=== PATIENT | female | born 1945 | race Caucasian/White ===

== ENCOUNTER 2016-11-01 08:45 | Outpatient (CLI) | payer MEDICARE, OTHER | END 2016-11-01 08:46 | LOC: NAV LAB 08:45 | PROVIDERS: ATTEND Family Medicine | DX: E78.5 Hyperlipidemia, unspecified (principal) | CPT/HCPCS: 80061 ==

== ENCOUNTER 2017-01-29 09:36 | Outpatient (CLI) | payer MEDICARE, OTHER ==
[2017-01-29 10:54] LABS: Cardiac Risk 5.7 (Less than 4.5)
== END 2017-01-29 09:37 ==
LOC: NAV LAB 09:36
PROVIDERS: ATTEND Family Medicine
DX: E78.5 Hyperlipidemia, unspecified (principal)
CPT/HCPCS: 80061

== ENCOUNTER 2017-05-09 17:00 | Inpatient (IN) | payer MEDICARE, OTHER ==
[2017-05-09 17:14] VITALS: BMI 30.3
[2017-05-09] MEDS: Gabapentin 400 MG CAP PO SCH (21:16)
[2017-05-09] MEDS: traMADol HCl 50 MG TAB PO SCH (21:16)
[2017-05-09] MEDS: Amoxicillin/Potassium Clav 875 MG TAB PO SCH (21:16)
[2017-05-09] MEDS: Apixaban 5 MG TAB PO SCH (21:16)
[2017-05-10 05:39] LABS: #Basophils 0.1 thou/uL (0.0-0.2); #Eosinphils 0.3 thou/uL (0.0-0.7); #Lymphocytes 1.9 thou/uL (1.20-3.40); #Neutrophils 6.2 thou/uL (1.40-6.50); %Basophils 1.2 % (0.0-1.0); %Eosinophils 3.6 % (0.0-10.0); %Lymphocytes 19.6 % (21.0-51.0); %Monocytes 10.7 % (0.0-10.0); %Neutrophils 64.9 % (42.0-75.0); Hemoglobin 11.6 g/dL (12.0-16.0); Mean Corpuscular HGB CONC 33.4 g/dL (32.0-36.0); Mean Corpuscular Hemoglobin 28.8 pg (27.0-31.0); Mean Corpuscular Volume 86.2 fl (81.0-99.0); Mean Platelet Volume 6.4 fL (7.4-10.4); Platelet Count 277 thou/uL (130-400); Red Blood Cell (RBC) Count 4.01 mill/uL (4.20-5.40); White Blood Cell (WBC) Count 9.5 thou/uL (4.8-10.8)
[2017-05-10 05:50] LABS: Anion Gap 13 mmol/L (10-20); BUN (Urea Nitrogen) 15 mg/dL (9.8-20.1); Calc. Creatinine Clearance 77 mL/min (70-130); Calcium 9.4 mg/dL (7.8-10.44); Carbon Dioxide 30 mmol/L (23-31); Chloride 100 mmol/L (98-107); Estimated GFR-MDRD 63; Glucose 100 mg/dL (83-110); Potassium 4.4 mmol/L (3.5-5.1); Sodium 139 mmol/L (136-145)
[2017-05-10] MEDS: Amoxicillin/Potassium Clav 875 MG TAB PO SCH ×2 (08:11→20:19)
[2017-05-10] MEDS: Gabapentin 400 MG CAP PO SCH ×3 (08:11→20:20)
[2017-05-10] MEDS: Apixaban 5 MG TAB PO SCH ×2 (08:11→20:20)
[2017-05-10] MEDS: Calcium Carbonate + Vit D 1 TAB PO SCH (08:11)
[2017-05-10] MEDS: Hydrochlorothiazide 25 MG TAB PO SCH (08:12)
[2017-05-10] MEDS: traMADol HCl 50 MG TAB PO SCH ×2 (08:12→20:20)
[2017-05-10] MEDS: Multivitamin W/ Minerals 1 TAB PO SCH (08:12)
[2017-05-10] MEDS: Venlafaxine HCl XR 75 MG CAP PO SCH (08:13)
[2017-05-10] MEDS: Valsartan 80 MG TAB PO SCH (08:13)
--- NOTE | 2017-05-10 16:43 | HP ---
CHIEF COMPLAINT: Recent pneumonia, dehydration, acute renal failure and atrial fibrillation with RV R, status post ablation here for therapy. BRIEF HISTORY: This is a very pleasant 71-year-old female, who was admitted to [facility] in [place] on 05/05/2017 with sepsis, atrial fibrillation with RVR, acute kidney injury and dehydration. CT of the chest showed no PE, but consolidation in her right middle lobe. She also bean d atrial fibrillation with RVR, requiring IV Cardizem and when she was admitted, she also had a crea tinine of 2.1. She was treated with IV antibiotics, IV fluids, and she did undergo cardiac catheter ization and underwent radiofrequency ablation. Her laboratory values all improved. Her echocardiog candido showed a normal left ventricular systolic function with normal size chambers. On the day of dis charge, her H\T\H was 11.2 and 34.5 with a BUN and creatinine of 21 and 0.86. She has been having s ome high blood pressures and currently, she is taking Diovan 320 mg daily along with HCTZ 25 daily. Currently, she denies any complaints. She is eating lunch. No chest pain or shortness of breath. She is concerned about her elevated blood pressure. She is also on Toprol-XL 50 mg b.i.d. PAST MEDICAL HISTORY: 1. Hypertension. 2. Dyslipidemia. 3. Chronic low back pain. 4. Gastroesophageal reflux disease. 5. Atrial fibrillation, requiring ablation. 6. Recent pneumonia. PAST SURGICAL HISTORY: 1. Laparoscopic cholecystectomy. 2. History of benign right breast biopsy. 3. Radiofrequency ablation. ALLERGIES: TYLENOL and SULFA. FAMILY HISTORY: CVA in her father. PSYCHOSOCIAL HISTORY: No history of tobacco, alcohol or IV drug abuse. She is active and independe nt. She lives in nearby [place]. CODE STATUS: FULL. MEDICATIONS: She has been transferred here on the following medications: 1. Amoxicillin and clavulanic acid, which is Augmentin 875 mg b.i.d. for 2 more days. 2. Eliquis 5 mg b.i.d. 3. Ecotrin 81 mg daily. 4. Gabapentin 800 mg t.i.d. 5. Diovan/HCTZ 320/25 one p.o. daily. 6. Toprol-XL 50 mg b.i.d. 7. Protonix 40 mg daily. 8. Tramadol 50 mg b.i.d. 9. Effexor 150 mg daily. REVIEW OF SYSTEMS: CARDIOVASCULAR: Denies any chest pain, shortness of breath, palpitations, paroxysmal nocturnal dysp [place], orthopnea, pedal edema. RESPIRATORY: Denies any chronic cough, expectoration or pleuritic type chest pain. GASTROINTESTINAL: Denies any nausea, vomiting, diarrhea, constipation, hematemesis, melena, hematoc hezia. GENITOURINARY: Denies any frequency, urgency, dysuria or hematuria. CENTRAL NERVOUS SYSTEM: Generalized weakness. HEENT: No difficulty with speech, vision, hearing or swallowing. PHYSICAL EXAMINATION: GENERAL: Pleasant 71-year-old overweight female, resting comfortably, in no acute distres s. She responds appropriately to questions. She is alert, awake, and oriented x3. VITAL SIGNS: She is afebrile. Heart rate 64, respirations 18, oxygen saturation is 95%, blood pres sure 165/79. HEENT: Normocephalic, atraumatic. Pupils equal and reactive to light and accommodation. NECK: No JVD, thyromegaly, cervical adenopathy, throat exudates. No carotid bruits. CARDIOVASCULAR: S1, S2 plus rate and rhythm regular. RESPIRATORY: Normal vesicular breath sounds. ABDOMEN: Soft, obese, nontender, bowel sounds heard in all quadrants. EXTREMITIES: Without cyanosis or clubbing. Peripheral pulses are palpable. CENTRAL NERVOUS SYSTEM: Grossly nonfocal. LABORATORY VALUES: Done this morning shows a white count 9.5, H\T\H is 11.6 and 34.6 with a platele t count of 277. Sodium 139, potassium 4.4, BUN and creatinine 15 and 0.88. IMPRESSION: 1. Resolving community-acquired pneumonia. 2. Atrial fibrillation with rapid ventricular response, status post radiofrequency ablation. 3. Hypertension, not well controlled. 4. Dyslipidemia. 5. Gastroesophageal reflux disease. 6. Deconditioning. PLAN: 1. Continue current medications. 2. Add hydralazine 25 mg b.i.d. 3. Heart healthy diet. 4. She is on Eliquis for DVT prophylaxis. 5. Decubitus precautions. 6. Stress ulcer prophylaxis. 7. Routine laboratory values. 8. Discussed with patient in detail. All questions answered.
[2017-05-11] MEDS: Apixaban 5 MG TAB PO SCH ×2 (08:48→20:19)
[2017-05-11] MEDS: Amoxicillin/Potassium Clav 875 MG TAB PO SCH ×2 (08:48→20:20)
[2017-05-11] MEDS: Gabapentin 400 MG CAP PO SCH ×3 (08:50→20:19)
[2017-05-11] MEDS: Calcium Carbonate + Vit D 1 TAB PO SCH (08:50)
[2017-05-11] MEDS: Hydrochlorothiazide 25 MG TAB PO SCH (08:50)
[2017-05-11] MEDS: Multivitamin W/ Minerals 1 TAB PO SCH (08:51)
[2017-05-11] MEDS: traMADol HCl 50 MG TAB PO SCH ×2 (08:51→20:19)
[2017-05-11] MEDS: Valsartan 80 MG TAB PO SCH (08:52)
[2017-05-11] MEDS: Venlafaxine HCl XR 75 MG CAP PO SCH (08:53)
--- NOTE | 2017-05-11 10:09 | PRG ---
DATE OF SERVICE: 05/11/2017 SUBJECTIVE: Ms. Duncan is doing well. Denies any complaints, resting comfortably up in her chair. Denies any chest pain or shortness of breath. OBJECTIVE: VITAL SIGNS: She is afebrile, heart rate 84, respirations 18, oxygen saturation is 96%, blood press ure this morning was apparently 170/80. CARDIOVASCULAR: S1, S2 plus. RESPIRATORY: Normal vesicular breath sounds. ABDOMEN: Soft, nontender, bowel sounds heard in all quadrants. EXTREMITIES: Without cyanosis or clubbing. IMPRESSION: 1. Hypertension, not well controlled. She was just started on hydralazine yesterday. 2. Dyslipidemia. 3. Chronic low back pain. 4. Gastroesophageal reflux disease. 5. Atrial fibrillation, status post ablation, now in sinus rhythm. 6. Resolving pneumonia. PLAN: 1. Continue to monitor blood pressure and adjust medications as needed. 2. Heart healthy diet. 3. Monitor heart rate. 4. Deep venous thrombosis prophylaxis. She is tolerating liquids. 5. Decubitus precautions. 6. Stress ulcer prophylaxis. 7. Routine laboratory values. 8. Physical therapy. 9. Dr. Negro flooring professional noon today until 9:00 p.m. Sunday.
[2017-05-12] MEDS: Calcium Carbonate + Vit D 1 TAB PO SCH (08:20)
[2017-05-12] MEDS: Amoxicillin/Potassium Clav 875 MG TAB PO SCH ×2 (08:20→20:09)
[2017-05-12] MEDS: Gabapentin 400 MG CAP PO SCH ×3 (08:20→20:09)
[2017-05-12] MEDS: Apixaban 5 MG TAB PO SCH ×2 (08:20→20:09)
[2017-05-12] MEDS: Multivitamin W/ Minerals 1 TAB PO SCH (08:21)
[2017-05-12] MEDS: Hydrochlorothiazide 25 MG TAB PO SCH (08:21)
[2017-05-12] MEDS: traMADol HCl 50 MG TAB PO SCH ×2 (08:22→20:10)
[2017-05-12] MEDS: Valsartan 80 MG TAB PO SCH (08:22)
[2017-05-12] MEDS: Venlafaxine HCl XR 75 MG CAP PO SCH (08:23)
--- NOTE | 2017-05-12 11:33 | PRG ---
DATE OF SERVICE: 05/12/2017 SUBJECTIVE: The patient feels well with no shortness of breath or chest pain and improving strength since ablation of atrial fibrillation with RVR. She has also been treated for right lower lobe pne umonia with IV antibiotics and is having no cough, shortness of breath or chest pain. She has had s ome difficulty with hypertension and has recently had hydralazine added to her routine regimen of di ltiazem. OBJECTIVE: VITAL SIGNS: Shows today her blood pressure is down to 162/70, this morning was 147/73, yesterday O 2 sats was 92% on room air, respirations 17, pulse 68, afebrile. LUNGS: Clear. Cardiac examination showed regular rhythm. Abdomen is soft and nontender. SKIN: Extremities display no edema, clubbing, cyanosis. ASSESSMENT: 1. Resolving right middle lobe pneumonia. 2. Stable, normal sinus rhythm status post ablation with no evidence of recurrent atrial fibrillati on. 3. Improved hypertension, on hydralazine, still not at goal, but improving. PLAN: 1. Continue hydralazine and diltiazem. Monitor blood pressure and adjust as needed. 2. Continue to monitor heart rate for signs of recurrent atrial fibrillation. 3. Continue apixaban for possible paroxysmal atrial fibrillation. 4. Continue to ambulate as tolerated.
--- NOTE | 2017-05-13 07:59 | PRG ---
DATE OF SERVICE: 05/13/[address] Austen Barry. SUBJECTIVE: The patient feels well with no shortness of breath, chest pain, increasing strength, wa lked in the fierro yesterday. Anticipation possible discharge in the next 1-2 days. OBJECTIVE: VITAL SIGNS: Blood pressure of 162/70, temperature 97, pulse 58, respirations 18, O2 sats 96%. LUNGS: Clear. CARDIAC: Examination shows regular rhythm. ABDOMEN: Soft and nontender. ASSESSMENT: Resolved atrial fibrillation, now in sinus rhythm; persistent elevated blood pressure o n increased dose of hydralazine; improving deconditioning. PLAN: Increase hydralazine to 50 mg twice daily. Continue to monitor closely. Continue ambulation . Possibly discharge in the next several days.
[2017-05-13] MEDS: Apixaban 5 MG TAB PO SCH ×2 (08:21→21:02)
[2017-05-13] MEDS: Amoxicillin/Potassium Clav 875 MG TAB PO SCH ×2 (08:21→21:02)
[2017-05-13] MEDS: Calcium Carbonate + Vit D 1 TAB PO SCH (08:21)
[2017-05-13] MEDS: Gabapentin 400 MG CAP PO SCH ×3 (08:21→21:02)
[2017-05-13] MEDS: Hydrochlorothiazide 25 MG TAB PO SCH (08:23)
[2017-05-13] MEDS: Multivitamin W/ Minerals 1 TAB PO SCH (08:23)
[2017-05-13] MEDS: traMADol HCl 50 MG TAB PO SCH ×2 (08:23→21:01)
[2017-05-13] MEDS: Venlafaxine HCl XR 75 MG CAP PO SCH (08:24)
[2017-05-13] MEDS: Valsartan 80 MG TAB PO SCH (08:24)
[2017-05-14] MEDS: Amoxicillin/Potassium Clav 875 MG TAB PO SCH (08:52)
[2017-05-14] MEDS: Calcium Carbonate + Vit D 1 TAB PO SCH (08:52)
[2017-05-14] MEDS: Gabapentin 400 MG CAP PO SCH ×3 (08:52→20:01)
[2017-05-14] MEDS: Apixaban 5 MG TAB PO SCH ×2 (08:52→20:01)
[2017-05-14] MEDS: Multivitamin W/ Minerals 1 TAB PO SCH (08:54)
[2017-05-14] MEDS: Hydrochlorothiazide 25 MG TAB PO SCH (08:54)
[2017-05-14] MEDS: traMADol HCl 50 MG TAB PO SCH ×2 (08:55→20:02)
[2017-05-14] MEDS: Venlafaxine HCl XR 75 MG CAP PO SCH (08:56)
[2017-05-14] MEDS: Valsartan 80 MG TAB PO SCH (08:56)
--- NOTE | 2017-05-14 13:18 | PRG ---
DATE OF SERVICE: 05/14/2017 SUBJECTIVE: Ms. Duncan is doing well. Denies any complaints, resting comfortably, doing really wel l, anticipating discharging tomorrow after case conference. OBJECTIVE: VITAL SIGNS: She is afebrile, heart rate is 74, respirations 18, blood pressure 138/58, oxygen satu ration is 96%. CARDIOVASCULAR: S1, S2 plus. RESPIRATORY: Normal vesicular breath sounds. ABDOMEN: Soft, obese, nontender, bowel sounds heard in all quadrants. EXTREMITIES: Without cyanosis or clubbing. Peripheral pulses are palpable. WORKERS COMPENSATION ADMINISTRATOR: Grossly nonfocal. IMPRESSION: 1. Atrial fibrillation, status post ablation. 2. Resolving pneumonia. 3. Hypertension, well controlled. 4. Dyslipidemia, stable. 5. Chronic back pain, much improved. 6. Gastroesophageal reflux disease. PLAN: 1. Continue current medications. 2. Nutritional support. 3. DVT and stress ulcer prophylaxis. 4. Decubitus precautions. 5. Stress ulcer prophylaxis. 6. Physical therapy. 7. Case conference tomorrow and anticipate discharge soon per review of her therapy notes and discu ssing with nursing. 8. Check BMP and CBC in the morning.
[2017-05-15 06:02] LABS: #Basophils 0.2 thou/uL (0.0-0.2); #Eosinphils 0.4 thou/uL (0.0-0.7); #Lymphocytes 2.6 thou/uL (1.20-3.40); #Monocytes 0.9 thou/uL (0.11-0.59); #Neutrophils 6.4 thou/uL (1.40-6.50); %Basophils 1.7 % (0.0-1.0); %Eosinophils 3.7 % (0.0-10.0); %Lymphocytes 25.1 % (21.0-51.0); %Monocytes 8.2 % (0.0-10.0); %Neutrophils 61.3 % (42.0-75.0); Mean Corpuscular HGB CONC 32.1 g/dL (32.0-36.0); Mean Corpuscular Hemoglobin 28.2 pg (27.0-31.0); Mean Corpuscular Volume 87.7 fl (81.0-99.0); Mean Platelet Volume 6.3 fL (7.4-10.4); Platelet Count 352 thou/uL (130-400); RBC Distribution Width 12.9 % (11.5-14.5); Red Blood Cell (RBC) Count 3.91 mill/uL (4.20-5.40); White Blood Cell (WBC) Count 10.4 thou/uL (4.8-10.8)
[2017-05-15 06:06] LABS: Anion Gap 15 mmol/L (10-20); BUN (Urea Nitrogen) 22 mg/dL (9.8-20.1); Calc. Creatinine Clearance 64 mL/min (70-130); Calcium 9.2 mg/dL (7.8-10.44); Carbon Dioxide 26 mmol/L (23-31); Chloride 104 mmol/L (98-107); Estimated GFR-MDRD 51; Glucose 104 mg/dL (83-110); Potassium 4.5 mmol/L (3.5-5.1); Sodium 140 mmol/L (136-145)
[2017-05-15 07:17] VITALS: TEMP 97.2
[2017-05-15] MEDS: Apixaban 5 MG TAB PO SCH (08:08)
[2017-05-15] MEDS: Gabapentin 400 MG CAP PO SCH (08:09)
[2017-05-15] MEDS: Calcium Carbonate + Vit D 1 TAB PO SCH (08:09)
[2017-05-15] MEDS: Hydrochlorothiazide 25 MG TAB PO SCH (08:10)
[2017-05-15] MEDS: Multivitamin W/ Minerals 1 TAB PO SCH (08:11)
[2017-05-15] MEDS: traMADol HCl 50 MG TAB PO SCH (08:11)
[2017-05-15] MEDS: Valsartan 80 MG TAB PO SCH (08:12)
[2017-05-15] MEDS: Venlafaxine HCl XR 75 MG CAP PO SCH (08:12)
[2017-05-15 15:23] VITALS: BP 144/70
--- NOTE | 2017-05-15 21:55 | DIS ---
DATE OF ADMISSION: 05/09/2017 DATE OF DISCHARGE: 05/15/2017 PRINCIPAL DIAGNOSES: 1. Resolving pneumonia. 2. Improving deconditioning. 3. Atrial fibrillation, status post ablation, now in sinus rhythm. 4. Hypertension, improved control. 5. Dyslipidemia. 6. Gastroesophageal reflux disease. 7. Chronic low back pain. COMPLICATIONS: None. ADVERSE REACTIONS: None. PROCEDURES: None. CONSULTATIONS: None. HOSPITAL COURSE: The patient was admitted on 05/09/2017 after being admitted to [facility] with pneumonia, dehydration, and atrial fibrillation with RVR. She underwent ablation and has been in sinus rhythm. She apparently has been given a prescription for Eliquis and Toprol by Dr. Arie beaza. She has been doing well here, improved with therapy and remained in sinus rhythm. She had to have hydralazine added for blood pressure and it has been under very good control. She denies an y chest pain, shortness of breath, denies any palpitations. She wants to go home and spoke with Ayan stewart therapy and she is going to make sure the patient is able to get up and down 3 steps and then e should be ready to go home. The only prescription she needs is for the hydralazine, which I have sent into [facility] that is here in town. I advised her to follow up with Dr. Johnson her [facility] care physician in 5-7 days. She is to call us with any questions or concerns. PHYSICAL EXAMINATION: VITAL SIGNS: On the day of discharge, she is afebrile, heart rate is 56, respirations are 18, oxyge n saturation was 93%, and blood pressure 159/67. CARDIOVASCULAR: S1 and S2 plus. RESPIRATORY: Normal vesicular breath sounds. ABDOMEN: Soft, obese, nontender, bowel sounds heard in all quadrants. EXTREMITIES: Without cyanosis or clubbing. CENTRAL NERVOUS SYSTEM: Grossly nonfocal. LABORATORY DATA: White count is 10.4, H and H is 11 and 34.3. Sodium 140, potassium 4.5, BUN and c reatinine 22 and 1.06. DISCHARGE MEDICATIONS: 1. Eliquis 5 mg b.i.d. 2. Ecotrin 81 mg daily. 3. Gabapentin 800 mg t.i.d. 4. Hydralazine 50 mg b.i.d. 5. Valsartan/hydrochlorothiazide 320/25 one tablet daily. 6. Toprol-XL 50 mg b.i.d. 7. Omeprazole 20 mg daily. 8. Effexor 150 mg daily. DIET: Heart healthy diet. ACTIVITY: As tolerated. She is to call us with any questions or concerns. Total time spent on this discharge 35 minutes.
== END 2017-05-15 13:25 | disposition home or self-care (01) | DRG 195 ==
LOC: NAV ACUTE 17:00
PROVIDERS: ADMIT Internal Medicine; ATTEND Internal Medicine
DX: J18.9 Pneumonia, unspecified organism (principal); I48.0 Paroxysmal atrial fibrillation; I10 Essential (primary) hypertension; E78.5 Hyperlipidemia, unspecified; K21.9 Gastro-esophageal reflux disease without esophagitis; M54.5 Low back pain; Z88.6 Allergy status to analgesic agent; Z88.2 Allergy status to sulfonamides
CPT/HCPCS: 80048; 85025